=== PATIENT | female | born 1995 | race Two or more races ===

== ENCOUNTER 2024-12-21 07:19 | Day surgery (SDC) | payer OTHER ==
[2024-12-14 13:09] LABS: RH POSITIVE
[2024-12-21] MEDS ORDERED: CEFTRIAXONE SODIUM 2,000 MG VIAL ONE ×2 (10:46→11:15)
[2024-12-21] MEDS ORDERED: METRONIDAZOLE/SODIUM CHLORIDE 500 MG/100 ML PIGGYBACK IV ONE ×2 (10:47→11:15)
[2024-12-21] MEDS ORDERED: LIDOCAINE HCL 1%/EPINEPHRINE 20ML VIAL IJ ONE (11:14)
[2024-12-21] MEDS ORDERED: BUPIVACAINE HCL/MPF 0.5% 30ML VIAL ONE (11:14)
[2024-12-21] MEDS ORDERED: THROMBIN,HU/FIBRINOGEN/CALCIUM 10 ML SYRINGE TOP ONE (13:45)
[2024-12-21] MEDS ORDERED: VISTASEAL DUAL APPICATOR 1 EACH APPL TOP ONE (13:45)
[2024-12-21] MEDS ORDERED: MORPHINE SULFATE 4 MG/ML VIAL IV ONE (14:50)
== END 2024-12-21 18:40 | disposition home or self-care (01) ==
LOC: CIR.AMB 07:19 → SURH 07:19 → O/R 07:19 → CIR.AMB 09:00 → SURH 09:00 → EDSTATUS 09:00 → CIR.AMB 12:15 → O/R 18:40 → CIR.AMB 18:40
PROVIDERS: ATTEND Obstetrics & Gynecology Gynecology
DX: N70.13 Chronic salpingitis and oophoritis (principal); N80.30 Endometriosis of pelvic peritoneum, unspecified; N80.203 Endometriosis of bilateral fallopian tubes, unspecified depth; N80.00 Endometriosis of the uterus, unspecified; K66.0 Peritoneal adhesions (postprocedural) (postinfection); N28.89 Other specified disorders of kidney and ureter

== ENCOUNTER 2025-09-04 07:59 | Outpatient (CLI) | payer OTHER | END 2025-09-04 08:00 | disposition home or self-care (01) | LOC: PRENATAL 07:59 | PROVIDERS: ATTEND Obstetrics & Gynecology Maternal & Fetal Medicine | DX: O36.80X0 Pregnancy with inconclusive fetal viability, not applicable or unspecified (principal); Z36.82 Encounter for antenatal screening for nuchal translucency; Z14.8 Genetic carrier of other disease; O09.811 Supervision of pregnancy resulting from assisted reproductive technology, first trimester; Z3A.11 11 weeks gestation of pregnancy ==